=== PATIENT | male | born 1960 | race African-American/Black ===

== ENCOUNTER 2025-01-19 14:44 | Inpatient (IN) | payer MEDICARE, OTHER ==
[2025-01-19 15:11] VITALS: BMI 25.7
[2025-01-19] MEDS ORDERED: P-EPHED 60MG/TRIPROLIDI 2.5MG TABLET PO PRN (15:18)
[2025-01-19] MEDS ORDERED: IBUPROFEN 400 MG TABLET (FP) PO PRN (15:18)
[2025-01-19] MEDS ORDERED: guaiFENesin 600 MG TABLET.ER (FP) PO PRN (15:18)
[2025-01-19] MEDS ORDERED: ACETAMINOPHEN 325 MG TABLET (FP) PO PRN (15:18)
[2025-01-19] MEDS ORDERED: ONDANSETRON *ODT* 4 MG TABLET SL PRN (15:18)
[2025-01-19] MEDS ORDERED: POLYETHYLENE GLYCOL (HEALTHYLAX) 3350 17 GM PACKET PO PRN (15:18)
[2025-01-19] MEDS ORDERED: NICOTINE POLACRILEX 2 MG LOZENGE BC PRN (15:18)
[2025-01-19] MEDS ORDERED: MAGNESIUM HYDROX 2400MG/30ML ORAL SUSPENSION 30 ML CUP PO PRN (15:18)
[2025-01-19] MEDS ORDERED: BENZONATATE 200 MG CAPSULE PO PRN (15:18)
[2025-01-19] MEDS ORDERED: NALOXONE (NARCAN) HCL 4 MG/0.1 ML SPRAY NS PRN (15:18)
[2025-01-19] MEDS ORDERED: LOPERAMIDE HCL 2 MG CAPSULE PO PRN (15:18)
[2025-01-19] MEDS ORDERED: NICOTINE POLACRILEX 2 MG GUM BUC PRN (15:18)
[2025-01-19] MEDS ORDERED: BISMUTH SUBSALICYLATE 524 MG/30 ML PO PRN (15:18)
[2025-01-19] MEDS ORDERED: MAG HYDROX/AL HYDROX/SIMETH 30 ML UNIT-DOSE CUP PO PRN (15:18)
[2025-01-19] MEDS ORDERED: BENZOCAINE/MENTHOL (CHLORASEPTIC ) LOZENGE MM PRN (15:18)
[2025-01-19] MEDS ORDERED: amLODIPine BESYLATE 5 MG TABLET (FP) ONE (16:27)
[2025-01-19] MEDS: amLODIPine BESYLATE 5 MG TABLET (FP) PO ONE (16:27)
[2025-01-19] MEDS: IBUPROFEN 600 MG TABLET (FP) PO PRN (22:47)
[2025-01-19] MEDS: MELATONIN 5 MG TABLETS PO SCH (22:47)
[2025-01-19] MEDS: METHOCARBAMOL 500 MG TABLET PO PRN (22:47)
[2025-01-19] MEDS: ROSUVASTATIN CA 20 MG TABLET PO SCH (22:47)
[2025-01-19] MEDS: LATANOPROST 0.005% OPHTH SOLN 2.5ML BOTTLE OU SCH (22:48)
[2025-01-19] MEDS: THIAMINE 100 MG TABLET PO SCH (22:48)
[2025-01-19] MEDS: GEMFIBROZIL 600 MG TABLET (FP) PO SCH (23:30)
[2025-01-20 06:28] VITALS: RESP 16
[2025-01-20] MEDS: PANTOPRAZOLE 40 MG TABLET PO SCH (10:22)
[2025-01-20] MEDS: LOSARTAN POTASSIUM 50 MG TABLET PO SCH (10:22)
[2025-01-20] MEDS: PRENATAL VITAMINS W/ FOLIC ACID TABLET (FP) PO SCH (10:22)
[2025-01-20 13:31] LABS: MCHC 31.9 g/dl (32.3-36.5); MEAN CELL VOLUME 97.2 fl (79.0-92.2); MEAN PLT VOLUME 9.9 fl (9.4-12.4); RDW 15.4 % (12.2-16.4)
[2025-01-20 14:02] LABS: GLUCOSE,RANDOM 173 mg/dL (74-106)
[2025-01-20 14:03] LABS: TOT PROT 6.5 g/dl (6.4-8.2)
[2025-01-20 14:04] LABS: CO2 24 mmol/L (21-32)
[2025-01-20 14:05] LABS: ALK PHOS 59 U/L (40-150)
[2025-01-20 14:08] LABS: CREATININE 0.90 mg/dL (0.55-1.3); SGOT/AST 15 U/L (5-34); SGPT/ALT 7 U/L (0-55)
[2025-01-21 09:35] VITALS: BP 175/63; PULSE 65; TEMP 97.6
== END 2025-01-21 11:44 | disposition home or self-care (01) | DRG 897 ==
LOC: YASAS 14:44 → Y6N 15:47
PROVIDERS: ADMIT Neuromusculoskeletal Medicine & OMM; ATTEND Student in an Organized Health Care Education/Training Program
PROC: HZ2ZZZZ Detoxification Services for Substance Abuse Treatment (ICD-10-PCS; principal; 2025-01-19)
DX: F10.230 Alcohol dependence with withdrawal, uncomplicated (principal); I10 Essential (primary) hypertension; E78.5 Hyperlipidemia, unspecified; K21.9 Gastro-esophageal reflux disease without esophagitis; H40.9 Unspecified glaucoma; M10.9 Gout, unspecified
CPT/HCPCS: 36415; 80053; 80307; 84550; 85027; 86780; 87811; 93005; 93010